=== PATIENT | female | born 1995 | race African-American/Black ===

== ENCOUNTER 2022-11-09 12:02 | Emergency (ER) | payer SELFPAY ==
[~2022-11-09] VITALS: Ht 162.6 cm; Wt 63.5 kg
[2022-11-09 12:39] VITALS: BP 112/69
[2022-11-09 14:03] LABS: APPEARANCE,URINE CLEAR (CLEAR); BILIRUBIN,URINE NEGATIVE (NEGATIVE); BLOOD, URINE 3+ (NEGATIVE); COLOR,URINE YELLOW (YELLOW); LEUKOCYTE ESTERASE ,URINE NEGATIVE (NEGATIVE); NITRITE, URINE NEGATIVE (NEGATIVE); PH,URINE 5.5 (5.0-9.0); UGLUCOSE NEGATIVE (NEGATIVE)
[2022-11-09 14:25] LABS: RBC,URINE 11-20 (MOD) /HPF (0-5)
[2022-11-09 14:26] LABS: WBC,URINE 0-5 /HPF (0-5)
[2022-11-09 14:30] LABS: HEMOGLOBIN 7.6 g/dL (12.0-16.0); MEAN CORPUSCULAR HEMOGLOBIN 19 pg (27-31); MEAN CORPUSCULAR HGB CONC 29 g/dL (33-37); MEAN CORPUSCULAR VOLUME 65.7 fL (80-94); PLATELET COUNT (AUTO) 305 K/uL (140-450); RED BLOOD CELL COUNT(AUTO) 3.96 MIL/uL (4.20-5.40); RED CELL DISTRIBUTION WIDTH 21.2 % (11.6-13.7); WHITE BLOOD COUNT (AUTO) 5.7 K/uL (4.8-10.8)
[2022-11-09 14:51] LABS: ALBUMIN 3.8 g/dL (3.4-5.0); ANION GAP 11.4 (8-16); CARBON DIOXIDE 25.8 mmol/L (21-32); CREATININE 0.8 mg/dL (0.6-1.3); POTASSIUM 4.2 mmol/L (3.5-5.1); TOTAL BILIRUBIN 0.4 mg/dL (0.0-1.0)
[2022-11-09 15:24] LABS: EOSINOPHILS % (MANUAL) 1 % (0-4); LYMPHOCYTES % (MANUAL) 38 % (20-46); MONOCYTES % (MANUAL) 8 % (5-12)
--- NOTE | 2022-11-09 18:21 | NUR ---
ASSUMED PATIENT CARE FOR DC INSTRUCTIONS.
--- NOTE | 2022-11-09 18:21 | NUR ---
Patient discharged with v/s stable. Written and verbal after care instructions given and explained. Patient verbalized understanding. Ambulatory with steady gait. All questions addressed prior to discharge. Advised to COME BACK IN THE MORNING FOR REPEAT CBC.
[2022-11-09 18:22] VITALS: BP 110/65
== END 2022-11-09 18:21 | disposition home or self-care (01) ==
LOC: MED 12:02
DX: N93.9 Abnormal uterine and vaginal bleeding, unspecified (principal); N94.6 Dysmenorrhea, unspecified; D64.9 Anemia, unspecified; J45.909 Unspecified asthma, uncomplicated; Z72.89 Other problems related to lifestyle
CPT/HCPCS: 36415; 76830; 80053; 81001; 81025; 85025; 99284; Q0092

== ENCOUNTER 2022-11-13 21:42 | Emergency (ER) | payer SELFPAY ==
[~2022-11-13] VITALS: Ht 162.6 cm; Wt 63.5 kg
[2022-11-13 21:45] VITALS: BP 134/79
--- NOTE | 2022-11-13 21:48 | NUR ---
TO LOBBY A/W BED AMBULATORY
[2022-11-13 22:47] LABS: BASOPHILS % (AUTO) 0.6 % (0.0-2.0); EOSINOPHILS # (AUTO) 0.1 K/uL (0-0.4); EOSINOPHILS % (AUTO) 1.1 % (0.0-4.0); HEMATOCRIT 28.8 % (36-48); HEMOGLOBIN 8.8 g/dL (12.0-16.0); LYMPHOCYTES # (AUTO) 2.3 K/uL (2.5-16.5); LYMPHOCYTES % (AUTO) 34.4 % (20.5-51.1); MEAN CORPUSCULAR HEMOGLOBIN 21 pg (27-31); MEAN CORPUSCULAR HGB CONC 31 g/dL (33-37); MEAN CORPUSCULAR VOLUME 68.1 fL (80-94); MONOCYTES # (AUTO) 0.5 K/uL (0.8-1.0); MONOCYTES % (AUTO) 6.8 % (1.7-9.3); NEUTROPHILS # (AUTO) 3.8 K/uL (1.8-7.7); NEUTROPHILS % (AUTO) 57.1 % (42.2-75.2); PLATELET COUNT (AUTO) 116 K/uL (140-450); RED BLOOD CELL COUNT(AUTO) 4.23 MIL/uL (4.20-5.40); RED CELL DISTRIBUTION WIDTH 21.9 % (11.6-13.7); WHITE BLOOD COUNT (AUTO) 6.7 K/uL (4.8-10.8)
[2022-11-13 23:02] LABS: ANION GAP 9.4 (8-16); CARBON DIOXIDE 27.2 mmol/L (21-32); POTASSIUM 3.6 mmol/L (3.5-5.1)
[2022-11-14] MEDS ORDERED: FERR325E14 PO (00:30)
[2022-11-14 00:52] VITALS: BP 134/79
--- NOTE | 2022-11-14 00:52 | NUR ---
Patient discharged with v/s stable. Written and verbal after care instructions given and explained. Patient alert, oriented and verbalized understanding of instructions. Ambulatory with steady gait. All questions addressed prior to discharge. ID band removed. Patient advised to follow up with PMD. Rx of IRON given. Patient educated on indication of medication including possible reaction and side effects. Opportunity to ask questions provided and answered.
== END 2022-11-14 00:52 | disposition home or self-care (01) ==
LOC: MED 21:42
DX: D50.9 Iron deficiency anemia, unspecified (principal); J45.909 Unspecified asthma, uncomplicated; Z79.899 Other long term (current) drug therapy
CPT/HCPCS: 36415; 80048; 85025; 85379; 86886; 86900; 86901; 99283

== ENCOUNTER 2023-01-14 19:59 | Emergency (ER) | payer MEDICAID ==
[~2023-01-14] VITALS: Ht 160 cm; Wt 63.5 kg
[~2023-01-14 19:59] MED LIST: FERR325E14 PO
[2023-01-14 20:17] VITALS: BP 111/73
--- NOTE | 2023-01-14 20:26 | NUR ---
TO BED 12 FOLLOWING TRIAGE AFTER OBTAINING UA
--- NOTE | 2023-01-14 20:49 | NUR ---
PT RESTING IN BED, AOX4, CHEST RISING AND FALLS SYMETRICAL, NO S/S DISTRESS, PT ON MONITOR
--- NOTE | 2023-01-14 21:00 | NUR ---
ER physician at bedside assessing patient.
[2023-01-14 21:28] LABS: APPEARANCE,URINE CLEAR (CLEAR); BILIRUBIN,URINE NEGATIVE (NEGATIVE); BLOOD, URINE NEGATIVE (NEGATIVE); COLOR,URINE YELLOW (YELLOW); LEUKOCYTE ESTERASE ,URINE NEGATIVE (NEGATIVE); NITRITE, URINE NEGATIVE (NEGATIVE); UGLUCOSE NEGATIVE (NEGATIVE)
[2023-01-14 22:15] VITALS: BP 112/61
[2023-01-14] MEDS ORDERED: IBUPROFEN 600 MG TAB PO ONE (22:15)
--- NOTE | 2023-01-14 22:19 | NUR ---
Patient discharged with v/s stable. Written and verbal after care instructions given and explained. Patient alert, oriented and verbalized understanding of instructions. Ambulatory with steady gait. All questions addressed prior to discharge. ID band removed. Patient advised to follow up with PMD. Rx given to patient. Patient educated on indication of medication including possible reaction and side effects. Opportunity to ask questions provided and answered. Addendum: 01/14/23 at 2229 by [email or web address] Patient discharged with v/s stable. Written and verbal after care instructions given and explained. Patient verbalized understanding. Ambulatory with steady gait. All questions addressed prior to discharge. Advised to follow up with PMD.
== END 2023-01-14 22:19 | disposition home or self-care (01) ==
LOC: MED 19:59
DX: M54.50 Low back pain, unspecified (principal); M79.10 Myalgia, unspecified site; Z79.899 Other long term (current) drug therapy
CPT/HCPCS: 81003; 99283

== ENCOUNTER 2023-02-21 09:04 | Emergency (ER) | payer MEDICAID ==
[~2023-02-21] VITALS: Ht 160 cm; Wt 59.4 kg
[2023-02-21 09:09] VITALS: BP 115/79; PULSE 88; RESP 20; TEMP 97.3; O2SAT 100
--- NOTE | 2023-02-21 09:23 | NUR ---
Patient ambulated to bed 3 with steady gait.
--- NOTE | 2023-02-21 09:27 | NUR ---
Patient ambulated to restroom. Urine sample provided.
--- NOTE | 2023-02-21 09:38 | NUR ---
Dr. Anna evaluating patient at bedside.
--- NOTE | 2023-02-21 09:52 | NUR ---
US at bedside.
[2023-02-21 10:07] LABS: BASOPHILS # (AUTO) 0.1 K/uL (0.00-0.22); BASOPHILS % (AUTO) 1.1 % (0.0-2.0); EOSINOPHILS % (AUTO) 0.7 % (0.0-4.0); HEMATOCRIT 33.9 % (36-48); HEMOGLOBIN 10.3 g/dL (12.0-16.0); LYMPHOCYTES # (AUTO) 1.5 K/uL (2.5-16.5); LYMPHOCYTES % (AUTO) 31.5 % (20.5-51.1); MEAN CORPUSCULAR HEMOGLOBIN 22 pg (27-31); MEAN CORPUSCULAR HGB CONC 30 g/dL (33-37); MEAN CORPUSCULAR VOLUME 71.4 fL (80-94); MONOCYTES # (AUTO) 0.3 K/uL (0.8-1.0); MONOCYTES % (AUTO) 6.4 % (1.7-9.3); NEUTROPHILS # (AUTO) 2.8 K/uL (1.8-7.7); NEUTROPHILS % (AUTO) 60.3 % (42.2-75.2); PLATELET COUNT (AUTO) 267 K/uL (140-450); RED BLOOD CELL COUNT(AUTO) 4.75 MIL/uL (4.20-5.40); RED CELL DISTRIBUTION WIDTH 19.2 % (11.6-13.7); WHITE BLOOD COUNT (AUTO) 4.7 K/uL (4.8-10.8)
[2023-02-21 10:16] LABS: BILIRUBIN,URINE NEGATIVE (NEGATIVE); BLOOD, URINE 3+ (NEGATIVE); LEUKOCYTE ESTERASE ,URINE 2+ (NEGATIVE); NITRITE, URINE POSITIVE (NEGATIVE); PH,URINE 6.5 (5.0-9.0); UGLUCOSE TRACE (NEGATIVE)
--- NOTE | 2023-02-21 10:17 | NUR ---
Patient was offered a sanitary pad and patient ambulated to restroom with steady gait.
[2023-02-21 10:27] LABS: ALBUMIN 3.9 g/dL (3.4-5.0); ANION GAP 11.1 (8-16); CARBON DIOXIDE 27.4 mmol/L (21-32); CREATININE 1.1 mg/dL (0.6-1.3); POTASSIUM 3.5 mmol/L (3.5-5.1); TOTAL BILIRUBIN 0.7 mg/dL (0.0-1.0)
[2023-02-21 10:31] LABS: APPEARANCE,URINE CLOUDY (CLEAR); COLOR,URINE BLOODY (YELLOW); RBC,URINE 20-50 /HPF (0-5)
--- NOTE | 2023-02-21 10:39 | NUR ---
Patient was offered snacks and ice.
[2023-02-21] MEDS ORDERED: IBUPROFEN 600 MG TAB PO ONE (10:45)
--- NOTE | 2023-02-21 10:47 | NUR ---
Dr. Anna at bedside re-evaluating patient.
--- NOTE | 2023-02-21 11:34 | NUR ---
Patient is sitting on bed, all needs met by staff. Vital signs stable. Call light within reach.
[2023-02-21] MEDS ORDERED: CEPH-588 PO (11:43)
[2023-02-21] MEDS ORDERED: IBUP-2213 PO (11:43)
[2023-02-21 12:18] VITALS: BP 112/68; PULSE 78; RESP 12; TEMP 98.9; O2SAT 100
--- NOTE | 2023-02-21 12:18 | NUR ---
Patient's pain is decreasing with medication. Patient discharged with v/s stable. Written and verbal after care instructions given. Patient alert, oriented and verbalized understanding of instructions. Ambulatory with steady gait. All questions addressed prior to discharge. ID band removed. Patient advised to follow up with PMD. Rx of Keflex and Ibuprofen given. Opportunity to ask questions provided and answered.
--- NOTE | 2023-02-21 14:46 | NUR ---
The patient's care was reviewed and supervised by ANABELLA JENSEN RN.
== END 2023-02-21 12:18 | disposition home or self-care (01) ==
LOC: MED 09:04
DX: N93.9 Abnormal uterine and vaginal bleeding, unspecified (principal); N30.01 Acute cystitis with hematuria; Z79.899 Other long term (current) drug therapy
CPT/HCPCS: 36415; 76856; 80053; 81001; 81025; 83690; 85025; 87086; 99284; Q0092

== ENCOUNTER 2023-06-24 11:12 | Emergency (ER) | payer MEDICAID ==
[~2023-06-24] VITALS: Ht 160 cm; Wt 61.2 kg
[~2023-06-24 11:12] MED LIST changes: +CEPH-588 PO; +IBUP-2213 PO
[2023-06-24 11:31] VITALS: BP 109/78; PULSE 81; RESP 16; TEMP 98.4; O2SAT 100
[2023-06-24 12:18] LABS: BASOPHILS # (AUTO) 0.1 K/uL (0.00-0.22); BASOPHILS % (AUTO) 0.6 % (0.0-2.0); EOSINOPHILS # (AUTO) 0.1 K/uL (0-0.4); EOSINOPHILS % (AUTO) 0.6 % (0.0-4.0); HEMOGLOBIN 9.9 g/dL (12.0-16.0); LYMPHOCYTES # (AUTO) 1.4 K/uL (2.5-16.5); LYMPHOCYTES % (AUTO) 15.5 % (20.5-51.1); MEAN CORPUSCULAR HEMOGLOBIN 23 pg (27-31); MEAN CORPUSCULAR HGB CONC 30 g/dL (33-37); MEAN CORPUSCULAR VOLUME 74.5 fL (80-94); MONOCYTES # (AUTO) 0.6 K/uL (0.8-1.0); NEUTROPHILS % (AUTO) 76.3 % (42.2-75.2); PLATELET COUNT (AUTO) 568 K/uL (140-450); RED BLOOD CELL COUNT(AUTO) 4.42 MIL/uL (4.20-5.40); RED CELL DISTRIBUTION WIDTH 20.6 % (11.6-13.7); WHITE BLOOD COUNT (AUTO) 9.2 K/uL (4.8-10.8)
[2023-06-24 12:24] LABS: ANION GAP 10.3 (8-16); CALCIUM 8.4 mg/dL (8.5-10.1); CARBON DIOXIDE 25.6 mmol/L (21-32); POTASSIUM 3.9 mmol/L (3.5-5.1)
[2023-06-24] MEDS ORDERED: KETOROLAC 60 MG/2 ML VIAL IM ONE (13:30)
[2023-06-24] MEDS ORDERED: IBUPROFEN 600 MG TAB PO ONE (13:45)
[2023-06-24] MEDS ORDERED: IBUP-2213 PO (14:02)
[2023-06-24 15:07] VITALS: BP 109/65; PULSE 75; RESP 18; TEMP 97.5; O2SAT 99
== END 2023-06-24 15:07 | disposition home or self-care (01) ==
LOC: MED 11:12
DX: R53.1 Weakness (principal); M79.18 Myalgia, other site; R07.9 Chest pain, unspecified; R42 Dizziness and giddiness; J45.909 Unspecified asthma, uncomplicated; Z79.899 Other long term (current) drug therapy; Z79.1 Long term (current) use of non-steroidal anti-inflammatories (NSAID); Z79.2 Long term (current) use of antibiotics
CPT/HCPCS: 36415; 80048; 85025; 99283; J1885

== ENCOUNTER 2023-09-25 02:11 | Emergency (ER) | payer MEDICAID ==
[~2023-09-25] VITALS: Ht 160 cm; Wt 59.4 kg
[2023-09-25 02:53] VITALS: BP 114/76; PULSE 78; RESP 16; TEMP 98.3; O2SAT 100
[2023-09-25] MEDS ORDERED: cefTRIAXone 1,000 MG VIAL ONE (04:03)
[2023-09-25] MEDS ORDERED: LIDOCAINE MPF 1% 5 ML ONE (04:04)
[2023-09-25] MEDS: cefTRIAXone 1,000 MG in LIDOCAINE MPF 1% 2.1 ML IM ONE (04:13)
[2023-09-25] MEDS ORDERED: METR-435 PO (04:15)
== END 2023-09-25 04:20 | disposition home or self-care (01) ==
LOC: MED 02:11
DX: L73.2 Hidradenitis suppurativa (principal); Z79.899 Other long term (current) drug therapy
CPT/HCPCS: 96372; 99283; J0696; J2001